=== PATIENT | male | born 1955 | race Caucasian/White ===

== ENCOUNTER 2019-10-15 21:02 | Emergency (ER) | payer SELFPAY ==
[2019-10-15] MEDS ORDERED: Fentanyl 100 MCG/2 ML VIAL ONE (21:20)
[2019-10-15] MEDS ORDERED: Nitroglycerin 0.4 MG TAB 1 EACH ONE ×2 (21:20→21:44)
[2019-10-15] MEDS ORDERED: Aspirin Chewable 81 MG TAB ONE (21:20)
[2019-10-15] MEDS ORDERED: Metoprolol Tartrate 5 MG/5 ML VIAL ONE ×2 (21:20→21:44)
[2019-10-15 21:24] LABS: #Basophils 0.2 thou/uL (0.0-0.2); #Eosinphils 0.4 thou/uL (0.0-0.7); #Lymphocytes 2.7 thou/uL (1.20-3.40); #Monocytes 0.8 thou/uL (0.11-0.59); %Basophils 1.2 % (0.0-1.0); %Eosinophils 2.8 % (0.0-10.0); %Lymphocytes 18.1 % (21.0-51.0); %Monocytes 5.2 % (0.0-10.0); %Neutrophils 72.8 % (42.0-75.0); Hemoglobin 12.5 g/dL (14.0-18.0); Mean Corpuscular Hemoglobin 28.8 pg (27.0-31.0); Mean Platelet Volume 7.6 fL (7.4-10.4); Platelet Count 512 thou/uL (130-400); RBC Distribution Width 12.5 % (11.5-14.5); Red Blood Cell (RBC) Count 4.35 mill/uL (4.70-6.10); White Blood Cell (WBC) Count 15.1 thou/uL (4.8-10.8)
[2019-10-15 21:37] LABS: ALT (SGPT) 44 U/L (8-55); AST (SGOT) 71 U/L (5-34); Albumin 3.4 g/dL (3.4-4.8); Alkaline Phosphatase 187 U/L (40-110); Anion Gap 18 mmol/L (10-20); BUN (Urea Nitrogen) 31 mg/dL (8.4-25.7); Bilirubin, Total 0.4 mg/dL (0.2-1.2); Calc. Creatinine Clearance 0 mL/min (70-130); Calcium 9.2 mg/dL (7.8-10.44); Carbon Dioxide 18 mmol/L (23-31); Chloride 106 mmol/L (98-107); Estimated GFR-MDRD 28; Globulin 3.3 g/dL (2.4-3.5); Glucose 151 mg/dL (80-115); Lipase 35 U/L (8-78); Potassium 4.6 mmol/L (3.5-5.1); Protein, Total 6.7 g/dL (5.8-8.1); Sodium 137 mmol/L (136-145)
[2019-10-15 21:54] LABS: CKMB 1.7 ng/mL (0-6.6)
[2019-10-15] MEDS ORDERED: Furosemide 100 MG/10 ML VIAL ONE (22:24)
[2019-10-15] MEDS ORDERED: Azithromycin 250 MG TAB ONE (23:18)
[2019-10-16] LABS: Bilirubin Negative (Negative); Blood, Urine Negative (Negative); Clarity Clear (Clear); Glucose, Urine (Dipstick) Negative (Negative); Leukocyte Negative (Negative); Nitrite Negative (Negative); Protein, Urine (Dipstick) 30 mg/dL (Neg-Trace)
[2019-10-16 00:09] LABS: Bacteria/HPF 1+ HPF (None Seen); RBC/HPF 0-3 HPF (0-3); Squamous Epithelial 0-3 HPF (0-3); WBC/HPF 0-3 HPF (0-3)
--- NOTE | 2019-10-16 07:33 | CT ---
PRELIMINARY REPORT/[facility]/EMERGENCY AFTER HOURS PROCEDURE: EXAM: CT Chest Without Intravenous Contrast. 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 COMPARISON: None provided. FINDINGS: LUNGS: Centrilobular emphysematous change. Sublobar consolidation in the bilateral upper lobes, righ t middle lobe, and bilateral lower lobes. PLEURAL SPACES: Small bilateral pleural effusions. No pneumothorax. HEART AND MEDIASTINUM: No cardiomegaly. No significant pericardial effusion. The coronary arteries a re calcified. LYMPH NODES: Enlarged paratracheal and subcarinal lymph nodes measuring up to 1.4 cm in short axis. CHEST WALL AND UPPER ABDOMEN: 3.2 cm hypodense left adrenal adenoma. The left kidney is atrophic. T he chest wall is unremarkable. BONES: No acute osseous abnormality. Multilevel degenerative disc disease. IMPRESSION: Sublobar consolidation in the bilateral upper lobes, bilateral lower lobes, and right middle lobe con cerning for an infectious process. Centrilobular emphysematous changes. Coronary artery disease. Nonspecific mediastinal lymphadenopathy. ELECTRONICALLY SIGNED BY: Niles Valverde MD October 15, 2019 10:35:51 PM CDT This report is intended for review by the ordering physician only, in accordance of law. If you recei ve this report in error, please call [facility] at [phone]. FINAL REPORT CT OF THE CHEST WITHOUT CONTRAST: Date: 10/15/[address] of the chest was performed for evaluation of chest pain. Emphysematous changes are present throughout. There are dense consolidations in each lower lobe, as well as the right middle lobe. Smal l to medium sized bilateral pleural effusions are present. Additionally, adenopathy is seen in the pa ratracheal and subcarinal regions. No pulmonary mass was seen. Some coronary artery calcifications ar e evident. Scans into the upper abdomen showed a 3.0 cm left adrenal mass. Its CT numbers are fairly low with ma ny portions being negative, making it highly likely that this is an adrenal adenoma. Mean CT numbers in the mass were around 4-5 units. IMPRESSION: 1. Bilateral lower lobe and right middle lobe infiltrates, effusions and adenopathy. An infectious p rocess is presumed. 2. Coronary artery calcifications. 3. 3.0 cm left adrenal adenoma. Dictation in agreement with preliminary report by [facility]. POS: HOME
--- NOTE | 2019-10-16 07:53 | RAD ---
PORTABLE CHEST: DATE: 10/15/2019. FINDINGS: An AP portable film at 2119 is compared with a 05/22/2011 study. Bilateral infiltrates are present in the hilar regions and lower lobes, especially around the left hi lum. The upper lobes are relatively spared. There may be some hilar adenopathy. The heart size is normal. IMPRESSION: Infiltrative changes suggestive of pneumonia. See CT to follow. POS: HOME
[2019-10-17 19:47] LABS: SARS-CoV-2 MS2 Positive; SARS-CoV-2 N Gene Negative; SARS-CoV-2 S Gene Negative; SARS-CoV-2 orf1ab Negative
== END 2019-10-16 00:07 | disposition short-term general hospital (02) ==
LOC: BURERS 21:02
DX: I11.0 Hypertensive heart disease with heart failure (principal); I50.9 Heart failure, unspecified; J18.9 Pneumonia, unspecified organism; E10.65 Type 1 diabetes mellitus with hyperglycemia; N28.9 Disorder of kidney and ureter, unspecified; I25.2 Old myocardial infarction; Z86.73 Personal history of transient ischemic attack (TIA), and cerebral infarction without residual deficits; F17.210 Nicotine dependence, cigarettes, uncomplicated; Z20.828 Contact with and (suspected) exposure to other viral communicable diseases
CPT/HCPCS: 71045; 71250; 80053; 81003; 81015; 82553; 83605; 83690; 83880; 84484; 85025; 87040; 87086; 87633; 87635; 87804; 93005; 94760; 96365; 96375; J1940; J1956; J3010; U0003